=== PATIENT | female | born 1985 ===

== ENCOUNTER 2018-04-16 07:37 | Outpatient (CLI) | payer BC ==
[2018-04-16] MEDS ORDERED: ISOVUE-370 76%-LOCM 1 ML ONE (11:20)
== END 2018-04-16 07:38 | disposition home or self-care (01) ==
LOC: BICCT 07:37
PROVIDERS: ATTEND Family Medicine
DX: R10.9 Unspecified abdominal pain (principal)
CPT/HCPCS: 74160

== ENCOUNTER 2019-05-28 10:05 | Outpatient (CLI) | payer OTHER ==
--- NOTE | 2019-05-28 11:05 | ULT ---
US Thyroid STANDARD: 05/28/2019 12:00 AM CLINICAL INDICATION: Thyroid nodule. COMPARISON: 10/26/2014 FINDINGS: Right and left thyroid lobes are normal in size and echotexture. The right thyroid lobe measures 4.5 and the left thyroid lobe measures 4.2. There is a 1.3 cm well-circumscribed mixed solid/cystic hypoechoic nodule without suspicious calcific ations. No right thyroid nodules are present. No cervical lymphadenopathy is noted. IMPRESSION: Right thyroid nodule has significantly decreased in size. TIRADS category 3 ; this nodule is now no longer greater than 1.5 cm and no further follow-up or biop sy is recommended per recent recommendations.
== END 2019-05-28 10:06 | disposition home or self-care (01) ==
LOC: SCSULT 10:05
PROVIDERS: ATTEND Family Medicine
DX: E04.1 Nontoxic single thyroid nodule (principal)
CPT/HCPCS: 76536